=== PATIENT | female | born 1965 | race Caucasian/White ===

== ENCOUNTER 2020-04-21 10:16 | Outpatient (CLI) | payer OTHER, SELFPAY ==
--- NOTE | 2020-04-21 11:00 | NEURO_ITS ---
Patient Number: [id number] Impression: # Complains of numbness of hands. # Bilateral moderate Carpal Tunnel Syndrome. # No ulnar neuropathy. # Normal needle/EMG exam. Nerve Conduction Studies Anti Sensory Summary Table Stim Site NR Peak (ms) P-T Amp (?V) Site1 Site2 Delta-P (ms) Dist (cm) [place] (m/s) Left Median Anti Sensory (2-3nd Digit) Wrist 4.5 20.6 Wrist 2-3nd Digit 4.5 14.0 31 Wrist 4.4 22.3 Wrist 2-3nd Digit 4.5 14.0 31 Right Median Anti Sensory (2-3nd Digit) Wrist 3.9 23.4 Wrist 2-3nd Digit 3.9 14.0 36 Wrist 4.3 40.5 Wrist 2-3nd Digit 3.9 14.0 36 Left Radial Anti Sensory (Base 1st Digit) Wrist 1.7 34.5 Wrist Base 1st Digit 1.7 0.0 Right Radial Anti Sensory (Base 1st Digit) Wrist 2.0 35.2 Wrist Base 1st Digit 2.0 0.0 Left Ulnar Anti Sensory (5th Digit) Wrist 2.3 42.8 Wrist 5th Digit 2.3 14.0 61 Right Ulnar Anti Sensory (5th Digit) Wrist 2.1 42.9 Wrist 5th Digit 2.1 14.0 67 Motor Summary Table Stim Site NR Onset (ms) O-P Amp (mV) Site1 Site2 Delta-0 (ms) Dist (cm) [place]o (m/s) Left Median Motor (Abd Poll Brev) Wrist 4.6 1.7 Elbow Wrist 4.2 24.0 57 Elbow 8.8 1.9 Right Median Motor (Abd Poll Brev) Wrist 4.4 7.1 Elbow Wrist 4.4 24.0 55 Elbow 8.8 5.1 Left Ulnar Motor (Abd Dig Minimi) Wrist 2.1 9.0 A Elbow Wrist 4.6 26.0 57 A Elbow 6.7 5.8 Right Ulnar Motor (Abd Dig Minimi) Wrist 2.5 9.3 A Elbow Wrist 4.2 24.0 57 A Elbow 6.7 7.4 F Wave Studies NR F-Lat (ms) L-R F-Lat (ms) Left Median (Mrkrs) (Abd Poll Brev) 28.81 0.82 Right Median (Mrkrs) (Abd Poll Brev) 27.99 0.82 Left Ulnar (Mrkrs) (Abd Dig Min) 26.17 0.24 Right Ulnar (Mrkrs) (Abd Dig Min) 25.93 0.24 EMG Side Muscle Nerve Root Ins Act Fibs Amp Dur Recrt Comment Right 1stDorInt Ulnar C8-T1 Nml Nml Nml Nml Nml Right Ext Indicis Radial (Post Int) C7-8 Nml Nml Nml Nml Nml Right Ext Digitorum Radial (Post Int) C7-8 Nml Nml Nml Nml Nml Right BrachioRad Radial C5-6 Nml Nml Nml Nml Nml Right PronatorTeres Median C6-7 Nml Nml Nml Nml Nml Right Abd Poll Brev Median C8-T1 Nml Nml Nml Nml Nml Left 1stDorInt Ulnar C8-T1 Nml Nml Nml Nml Nml Left Ext Indicis Radial (Post Int) C7-8 Nml Nml Nml Nml Nml Left Ext Digitorum Radial (Post Int) C7-8 Nml Nml Nml Nml Nml Left BrachioRad Radial C5-6 Nml Nml Nml Nml Nml Left PronatorTeres Median C6-7 Nml Nml Nml Nml Nml Left Abd Poll Brev Median C8-T1 Nml Nml Nml Nml Nml MTDD
== END 2020-04-21 10:17 | disposition home or self-care (01) ==
PROVIDERS: PCP Specialist; Visit Provider Specialist
DX: M79.602 Pain in left arm (principal); M79.601 Pain in right arm; G56.03 Carpal tunnel syndrome, bilateral upper limbs
CPT/HCPCS: 95886; 95911

== ENCOUNTER 2020-07-23 07:49 | Emergency (ER) | payer OTHER, SELFPAY ==
[2020-07-23] VITALS (19 sets, daily range): BP systolic 107–165; BP diastolic 64–101; PULSE 72–89; RESP 16–22; TEMP 36.7; O2SAT 92–100
--- NOTE | ~2020-07-23 | XR_ITS ---
EXAMINATION: XR ankle RT min 3V INDICATION: Right ankle pain and deformity, initial encounter TECHNIQUE: Three views of the right ankle are obtained. COMPARISON: None available FINDINGS: There is posterior dislocation of the talus with respect to the tibial plafond. The talus i s subluxed approximately 2 cm laterally with respect to the tibia. There is a fracture of the medial and posterior malleoli of the tibia. There is an acute, traumatic, closed, oblique fracture of the di stal fibula extending to the level of the tibial plafond and. The distal fracture fragment is posteri jaimee displaced and overriding. Soft tissue swelling surrounds the fractures. A posterior splint has b een applied. No additional acute osseous findings are evident. IMPRESSION: 1. Trimalleolar fracture/dislocation as detailed above. Reviewed, dictated and finalized at location A.
--- NOTE | ~2020-07-23 | XR_ITS ---
EXAMINATION: XR ankle RT 2V INDICATION: Trimalleolar fracture dislocation status post reduction TECHNIQUE: AP and lateral views of the right ankle are obtained on four radiographs status post two c onsecutive reduction attempts. COMPARISON: 0805 hours FINDINGS: The second set of images obtained at 0834 hours demonstrate reduction of the tibiotalar dis location to near-anatomic alignment. The oblique distal fibular fracture is also reduced to near-coty omic alignment with 5 mm of persistent posterior separation of the distal fracture fragment from the proximal fibular segment. A posterior splint has been applied. On these radiographs, there appears to be an avulsion at the tip of the medial malleolus rather than a large medial malleolar fracture. In addition, the posterior malleolus of the distal tibia is without identifiable large fracture on these radiographs. IMPRESSION: 1. Reduced and splinted ankle fracture/dislocation in near-anatomic alignment. Severity of distal tib ia fractures is less than suspected on earlier radiographs. Reviewed, dictated and finalized at location A. IMPRESSION: 1. Reduced and splinted ankle fracture/dislocation in near-anatomic alignment. Severity of distal tibia fractures is less than suspected on earlier radiograph s.
--- NOTE | 2020-07-23 08:03 | ED.LOWEXIN ---
HPI - Extremity Injury (Lower) General Chief Complaint: Extremity Injury, Lower Stated Complaint: dislocated ankle Time Seen by Provider: 07/23/20 08:02 History of Present Illness HPI Narrative: Brought in from home by EMS for an ankle dislocation. She slipped and fell at home. She twisted her ankle in the fall. Severe pain initially. Noted to have significant deformity by EMS. Given 4 mg morphine. On arrival to the ED pain is 5/10. She has movement and sensation in the toes, but feels that they are starting to go numb. No wounds. No additional injury. Related Data Home Medications Medication Instructions Recorded Confirmed esomeprazole magnesium [Nexium] 20 mg PO DAILY 07/23/20 07/23/20 fluticasone propion-salmeterol 1 inh INHALATION Q12H 07/23/20 07/23/20 [Advair Diskus] hydrochlorothiazide 12.5 mg PO DAILY 07/23/20 07/23/20 losartan 100 mg PO DAILY 07/23/20 07/23/20 Allergies Allergy/AdvReac Type Severity Reaction Status Date / Time No Known Allergies Allergy Unverified 07/23/20 07:54 Review of Systems Review of Systems: All systems reviewed & are unremarkable except as noted in HPI and below PMFSH Past Medical History Medical History (Updated 07/23/20 @ 12:13 by Zack Crystal MD) Asthma HTN (hypertension) Surgical History Surgical History (Updated 07/23/20 @ 12:03 by Zack Crystal MD) H/O knee surgery Social History Social History (Updated 07/23/20 @ 12:03 by Zack Crystal MD) Living arrangements: with family Exam Const: General: healthy appearing, no acute distress and alert Orientation/consciousness: patient oriented x3 HENMT: Head: normal to inspection Resp: Effort & Inspection: normal respiratory effort Auscultation: clear to auscultation bilaterally Cardio: Rate: regular rate Rhythm: regular rhythm Other: No palpable DP or PT on the right. Good distal capillary refill Skin: General skin exam: normal color Wounds: no wounds Neuro: General: patient oriented x3 and CN's II-XI intact bilaterally Speech: normal speech Other: Sensation intact throughout toes on the right Extrem: Other: Significant deformity of the right ankle with mild skin tenting Course Consultations Consultation #1: Dr. Galindo accepted the patient for admission. Planning for surgery tomorrow. Called back to inform him that the patient chose to be transfered. Date: 07/23/20 Consultation #2: Called Kath to discuss follow-up. Ortho resident said they would see her in the ED if transfered. He would not agree to outpatient follow-up. He said she will likely be seen in clinic next week to schedule surgery at a later date. I discussed this with the patient and she said that she would still like to be transfered despite the delay. Date: 07/23/20 Vital Signs Vital signs: Vital Signs Temperature 36.7 C 07/23/20 07:47 Pulse Rate 85 07/23/20 07:47 Respiratory Rate 21 H 07/23/20 07:47 Blood Pressure 165/95 H 07/23/20 07:47 Pulse Oximetry 100 07/23/20 07:47 Temperature 36.7 C 07/23/20 08:05 Pulse Rate 81 07/23/20 11:38 Respiratory Rate 18 07/23/20 11:38 Blood Pressure 148/90 H 07/23/20 11:38 Pulse Oximetry 96 07/23/20 11:38 Procedures Orthopedic Joint Reduction Joint #1: Orthopedic Joint Reduction Date: 07/23/20 Orthopedic Joint Reduction Time: 08:08 Time Out Performed: Yes Side: right Joint Reduction Location: ankle Pre-Procedure Neuro Vascular Exam: abnormal Technique used: direct manipulation Post-reduction neuro exam: intact Post-reduction vascular: intact Post Reduction X-Ray Obtained: Yes Post Reduction X-Ray Results: reduced Splint Applied: Yes Patient Tolerated Procedure: well Additional Comments: Fracture/dislocation was reduced under sedation. It redislocated during the positioning for the x-rays. She was then given an additional dose of propofol, reduced, and
[2020-07-23] MEDS: PROPOFOL IV EMULSION 200 MG/20 ML VIAL (08:08)
--- NOTE | 2020-07-23 08:08 | PC.NURSE ---
08- consent signed, time out performed, pt a&ox4 at bedside, capnography on, crash cart in room 0808- 80 mg propofol given 1000ml NS infusing at this time
--- NOTE | 2020-07-23 08:10 | PC.NURSE ---
0810- pt still awake at this time 20mg propofol given
--- NOTE | 2020-07-23 08:11 | PC.NURSE ---
0811- pt still grimacing in pain, 20 mg Propofol given
--- NOTE | 2020-07-23 08:14 | PC.NURSE ---
0814- pt ankle back in place, x ray called to shoot post reduction
--- NOTE | 2020-07-23 08:17 | PC.NURSE ---
0817- ankle dislocated again, 80 mg propofol given to attempt to reduce it again.
--- NOTE | 2020-07-23 08:30 | PC.NURSE ---
0830- pt alert and oriented at this time, pt back to pre procedure baseline, VSS
--- NOTE | 2020-07-23 11:18 | WPDANESEPP ---
Anes - Eval Pre Procedure Procedure: ORIF R trimalleolar fx Date/Time: 07/23/20 11:18 Pre Op Diagnosis: dislocated ankle Patient Data Age: 55 Gender: F Height: 1.52 m Weight: 67.5 kg Last Vital Signs Temp 36.7 C 07/23/20 08:05 Pulse 82 07/23/20 09:32 Resp 16 07/23/20 09:32 BP 162/90 H 07/23/20 09:32 Pulse Ox 99 07/23/20 09:32 Allergies Allergy/AdvReac Type Severity Reaction Status Date / Time No Known Allergies Allergy Unverified 07/23/20 07:54 Home Medications Medication Instructions Recorded Confirmed Type esomeprazole magnesium [Nexium] 20 mg PO DAILY 07/23/20 07/23/20 History fluticasone propion-salmeterol 1 inh INHALATION Q12H 07/23/20 07/23/20 History [Advair Diskus] hydrochlorothiazide 12.5 mg PO DAILY 07/23/20 07/23/20 History losartan 100 mg PO DAILY 07/23/20 07/23/20 History Exam Day of Procedure 07/23/20 11:18
[2020-07-23] MEDS: MORPHINE SULFATE 4 MG/ML INJ IV PUSH (12:41)
--- NOTE | 2020-07-23 14:04 | PC.NURSE ---
Still waiting on EMS. [facility] ETA [id number]
== END 2020-07-23 14:58 | disposition short-term general hospital (02) ==
PROVIDERS: Emergency Provider Emergency Medicine
DX: S82.841A Displaced bimalleolar fracture of right lower leg, initial encounter for closed fracture (principal); J45.909 Unspecified asthma, uncomplicated; I10 Essential (primary) hypertension; W01.0XXA Fall on same level from slipping, tripping and stumbling without subsequent striking against object, initial encounter; X50.9XXA Other and unspecified overexertion or strenuous movements or postures, initial encounter
CPT/HCPCS: 27810; 73600; 73610; 99285; J2270; J2704

== ENCOUNTER → 2020-08-31 13:57 | Outpatient (CLI) | payer OTHER, SELFPAY ==
--- NOTE | ~2020-08-31 | CT_ITS ---
EXAMINATION: CT facial bones w con DATE: 08/31/2020 14:36 INDICATION: Right facial asymmetry, swelling TECHNIQUE: Computed tomography (CT) of the facial bones and maxillofacial region was performed withou t intravenous contrast. Automated exposure control and iterative reconstruction technique were employ ed. Exam dose: 240.36 mGy-cm total exam DLP. COMPARISON: None. FINDINGS: There is prominent rightward deviation of the nasal septum. The nasal turbinates are modera tely prominent, relatively symmetric. Mild interlamellar cell of both middle nasal turbinates. The ostiomeatal units are patent. There is moderately prominent mucosal periosteal thickening of the left maxillary sinus. There is minimal focal lower medial right maxillary sinus wall soft tissue thickening. There is a posterior opacified right ethmoid air cell. The paranasal sinuses are otherwise normally developed and aerated. The mastoid air cells are normally developed and aerated. Middle and inner ear apparatus appear normal bilaterally. No facial fracture or bone destruction. The nasal bones and anterior maxillary spine are intact. Zygo matic arches frontozygomatic starches are preserved. No mandibular fracture. Normal alignment at the temporomandibular joints. IMPRESSION: Soft tissue thickening of the right maxillary and minimally of the left maxillary sinus and single posterior right ethmoid opacified air cell Deviation rightward of nasal septum Mild interlamellar cell of both middle nasal turbinates Reviewed, dictated and finalized at [facility]. Reviewed, dictated and finalized at location B.
[2020-08-31 14:20] LABS: Estimated Glomerular Filt Rate 57
== END ==
DX: M26.12 Other jaw asymmetry (principal); R22.0 Localized swelling, mass and lump, head
CPT/HCPCS: 70487; Q9967

== ENCOUNTER 2020-11-27 10:09 | Emergency (ER) | payer OTHER, SELFPAY ==
[2020-11-27 10:22] VITALS: BP 135/72; PULSE 96; RESP 16; TEMP 36.4; O2SAT 100
[2020-11-27 10:24] VITALS: BP 135/72; PULSE 96; RESP 16; TEMP 36.4; O2SAT 100
--- NOTE | 2020-11-27 10:35 | ED.UPPEXIN ---
HPI - Extremity Injury (Upper) General Chief Complaint: Extremity Injury, Upper Stated Complaint: Shouder Pain Source: patient Mode of arrival: ambulatory Limitations: no limitations History of Present Illness HPI narrative: Patient is a 55-year-old female who presents with complaints of left shoulder pain that radiates to her arm and neck. She reports pain x1 day. She denies injury. She reports sudden onset of pain. She reports pain is constant. She reports taking Tylenol with codeine and Flexeril with little relief. She has not taken aspirin or ibuprofen as she is scheduled for surgery on Saturday. She denies shortness of breath or other complaints. Patient has history of hypertension and elevated cholesterol. Patient reports a family history where her sibling had PR at 55 and . Patient is anxious and tearful. MD complaint: injury to: left and shoulder Related Data Home Medications Medication Instructions Recorded Confirmed esomeprazole magnesium [Nexium] 20 mg PO DAILY 07/23/20 07/23/20 fluticasone propion-salmeterol 1 inh INHALATION Q12H 07/23/20 07/23/20 [Advair Diskus] hydrochlorothiazide 12.5 mg PO DAILY 07/23/20 07/23/20 losartan 100 mg PO DAILY 07/23/20 07/23/20 bupropion HCl PO 11/27/20 montelukast mg 11/27/20 Allergies Allergy/AdvReac Type Severity Reaction Status Date / Time No Known Allergies Allergy Unverified 07/23/20 07:54 Review of Systems Review of Systems: Narrative: CONSTITUTIONAL: Denies fever, chills, or sweats. EYES: Denies visual changes, redness, or discharge. ENT: Denies rhinorrhea, congestion, sore throat, or otalgia. CARDIOVASCULAR: Denies chest pain, palpitations, or edema. RESPIRATORY: Denies cough or dyspnea. GASTROINTESTINAL: Denies abdominal pain, nausea, vomiting, or diarrhea. GENITOURINARY: Denies dysuria or hematuria. SKIN: Denies rash or itching. MUSCULOSKELETAL: Left shoulder pain that radiates to her neck and lower arm NEUROLOGIC: Denies headache, numbness, dizziness, or weakness. PSYCHIATRIC: Denies anxiety or depression. [facility] Past Medical History Medical History Asthma HTN (hypertension) Surgical History Surgical History H/O knee surgery Family History Family History Sibling Myocardial infarction Other Heart disease Social History Social History (Updated 11/27/20 @ 10:38 by VANDANA Wong) Smoking status: Never smoker Alcohol intake: never Substance use: never Living arrangements: with family Exam Narrative: Exam Narrative: GENERAL: Well-appearing, well-nourished, and in no acute distress. HEAD: Normocephalic, atraumatic. EYES: EOMI. No redness or drainage. Conjunctiva are normal. ENT: Mucous membranes pink and moist. NECK: AROM. Supple. No lymphadenopathy. CHEST: No respiratory distress. HEART: Regular rate and rhythm. MUSCULOSKELETAL: No bony tenderness. EXTREMITIES: Normal range of motion. No edema. SKIN: Warm, dry, no rash. NEURO: No focal deficits. Alert and oriented x3. Gait steady. PSYCH: Normal affect. No signs of depression or anxiety. Course Vital Signs Vital signs: Vital Signs Temperature 36.4 C L 11/27/20 10:22 Pulse Rate 96 11/27/20 10:22 Respiratory Rate 16 11/27/20 10:22 Blood Pressure 135/72 11/27/20 10:22 Pulse Oximetry 100 11/27/20 10:22 Temperature 36.4 C L 11/27/20 10:24 Pulse Rate 96 11/27/20 10:24 Respiratory Rate 16 11/27/20 10:24 Blood Pressure 135/72 11/27/20 10:24 Pulse Oximetry 100 11/27/20 10:24 Transfer Transfered to: [facility] Transfer rationale: Higher Level of Care Accepting physician: Dr. Foster Transfer comments: Patient refused EMS transfer as she did not want to go to the nearest facility of [facility]. Patient is going by personal vehicle to [facility]
--- NOTE | 2020-11-27 10:45 | ECG_ITS ---
Measurements Intervals [place] Rate: 88 P: 22 NC: 182 QRS: -20 QRSD: 86 T: 3 QT: 361 QTc: 437 Interpretive Statements SINUS RHYTHM LOW QRS VOLTAGE IN PRECORDIAL LEADS DELAYED PRECORDIAL R/S TRANSITION BORDERLINE T WAVE ABNORMALITY- INFERIOR LEADS BORDERLINE ECG Electronically Signed On 11-27-2020 15:06:31 COUNSELING CASE MANAGER by Carlos Eduardo Bear D.O.
== END 2020-11-27 11:11 | disposition short-term general hospital (02) ==
PROVIDERS: Emergency Provider Nurse Practitioner
DX: M25.512 Pain in left shoulder (principal); J45.909 Unspecified asthma, uncomplicated; I10 Essential (primary) hypertension
CPT/HCPCS: 93005; 99213; G0463